=== PATIENT | male | born 1990 | race Two or more races ===

== ENCOUNTER 2020-03-03 11:02 | Emergency (ER) | payer OTHER ==
[~2020-03-03] VITALS: Ht 160 cm; Wt 81.6 kg
[2020-03-03 11:08] VITALS: BP 115/73
[2020-03-03] MEDS ORDERED: KETOROLAC TROMETH 60MG/2ML VIAL IM ONE (11:45)
== END 2020-03-03 12:11 | disposition home or self-care (01) ==
LOC: ER 11:02
DX: S80.02XA Contusion of left knee, initial encounter (principal); V09.9XXA Pedestrian injured in unspecified transport accident, initial encounter; Y93.89 Activity, other specified; Y92.89 Other specified places as the place of occurrence of the external cause; Y99.8 Other external cause status
CPT/HCPCS: 73562; 96372; 99283; J1885